=== PATIENT | male | born 1960 | race African-American/Black ===

== ENCOUNTER 2018-11-16 10:29 | Emergency (ER) | payer BC, OTHER ==
[2018-11-16] MEDS: KETOROLAC 30 MG INJ IM (11:44)
== END 2018-11-16 13:29 | disposition home or self-care (01) ==
LOC: FTE 13:29
DX: M54.5 Low back pain (principal); I10 Essential (primary) hypertension; J45.909 Unspecified asthma, uncomplicated
CPT/HCPCS: 72100; 96372; 99284-25